=== PATIENT | male | born 1945 | race Caucasian/White ===

== ENCOUNTER 2017-06-05 10:44 | Emergency (ER) | payer SELFPAY ==
[2017-06-05] MEDS: ONDANSETRON (ODT) 4 MG TAB ODT (11:15)
[2017-06-05] MEDS: HYDROmorphONE 2 MG/ML SYG IM (11:15)
== END 2017-06-05 11:02 | disposition home or self-care (01) ==
LOC: E/R 11:02
DX: M54.40 Lumbago with sciatica, unspecified side (principal)
CPT/HCPCS: 96372; 99284-25